=== PATIENT | female | born 1960 | race Caucasian/White ===

== ENCOUNTER → 2016-06-25 | Outpatient (CLI) | payer BC ==
--- NOTE | 2016-06-25 12:11 | USB ---
Reason for exam: clinical finding. History: Patient is postmenopausal. Benign excisional biopsy of the right breast, 2006. Benign excisional biopsy of the right breast, April 12, 1997. Physical Findings: Nurse did not find any significant physical abnormalities on exam. US Breast LT Left breast ultrasound including all four quadrants, the retroareolar region and axilla demonstrates a 0.3 x 0.2 x 0.26cm oval lesion too small to characterize at 1 o'clock, can be followed and a 0.9 x 0.8 x 0.5cm oval, hypoechoic, vascular lesion at 2 o'clock for which a biopsy is recommended. These results were verbally communicated with the patient and result sheet given to the patient on 06/25/16. ASSESSMENT: Suspicious, BI-RAD 4 RECOMMENDATION: Surgical consultation and ultrasound core biopsy of the left breast. (2 o'clock) Called Dr. Nelson with mammographic findings and has scheduled an appointment for the patient for 07/30/16 at 10:[address] Rosales. Biopsy scheduled for 07/03/16 at 8:00. PRELIMINARY REPORT CALLED AND FAXED TO DR. ROSALES ON 06/25/16 AT 300/TP.
== END | disposition home or self-care (01) ==
LOC: RADUSWWP 09:37
PROVIDERS: ATTEND Family Medicine
DX: R92.8 Other abnormal and inconclusive findings on diagnostic imaging of breast (principal)

== ENCOUNTER → 2016-07-03 | Day surgery (SDC) | payer BC ==
[~2016-07-03] MED LIST: ALPRAZolam 0.25 MG TAB ONE; BACITRACIN OINT 1 EACH PACKET TOPICAL ONE; LIDOCAINE 1% INJ 10MG/ML (20 ML MDV) ONE; SODIUM BICARB 4% 5 ML VIAL (0.48 MEQ/ML) ONE
--- NOTE | 2016-07-03 08:56 | USB ---
EXAMINATION TYPE: US biopsy breast VAD LT, MG diagnostic mammo LT wo CAD DATE OF EXAM: 07/03/2016 8:40 AM CLINICAL HISTORY: R92.8 Abn Mammogram. TECHNIQUE: Ultrasound guided core biopsy of left 2:00 breast. COMPARISON: NONE FINDINGS: The procedure of ultrasound guided core biopsy was explained to the patient. Benefits, alternatives, and risks were discussed. An informed consent was then obtained. The patient was placed in supine positioning for imaging and for the procedure. The overlying skin was prepped and draped in usual sterile fashion. Lidocaine buffered with bicarbonate was used as anesthetic into the skin and subcutaneous tissue up to area of concern in the left breast. A black was made with surgical scalpel. Under ultrasound guidance, a 12-gauge vacuum assisted biopsy gun device was used to obtain 4 core samples. Following this, a biopsy clip was left in lesion. The patient tolerated the procedure well without any immediate complication. The patient was kept in the radiology department for short stay after the procedure and then discharged home in stable condition. IMPRESSION: Successful, uncomplicated ultrasound guided core biopsy of area of concern in the left breast, full pathology results to follow. Pathology Results: Benign BREAST, LEFT, CORE BIOPSY: FIBROADENOMA AND BACKGROUND FIBROCYSTIC CHANGES. Recommendation Follow up ultrasound of the left breast in 6 months. CARITO
== END ==
LOC: RADUSWWP 07:07
PROVIDERS: ATTEND Surgery
DX: D24.2 Benign neoplasm of left breast (principal); N60.12 Diffuse cystic mastopathy of left breast; R92.8 Other abnormal and inconclusive findings on diagnostic imaging of breast
CPT/HCPCS: 88305; 19083; G0206; A4648; J2001

== ENCOUNTER → 2017-01-08 | Outpatient (CLI) | payer BC ==
--- NOTE | 2017-01-12 14:54 | MM ---
Reason for exam: follow-up at short interval from prior study. Last mammogram was performed 6 months ago. History: Patient is postmenopausal. Benign US biopsy breast VAD LT of the left breast, July 03, 2016. Benign excisional biopsy of the right breast, 2006. Benign excisional biopsy of the right breast, April 12, 1997. Physical Findings: Nurse did not find any significant physical abnormalities on exam. MG Diagnostic Mammo LT w CAD CC, MLO, and ML view(s) were taken of the left breast. Prior study comparison: July 03, 2016, left breast MG diagnostic mammo LT wo CAD. January 30, 2010, bilateral digital screening mammogram. There are scattered fibroglandular densities. No significant new findings when compared with previous films. These results were verbally communicated with the patient and result sheet given to the patient on 01/08/17. ASSESSMENT: Benign, BI-RAD 2 RECOMMENDATION: Routine screening mammogram of both breasts in 1 year.
--- NOTE | 2017-01-12 15:03 | USB ---
Reason for exam: follow-up at short interval from prior study. History: Patient is postmenopausal. Benign US biopsy breast VAD LT of the left breast, July 03, 2016. Benign excisional biopsy of the right breast, 2006. Benign excisional biopsy of the right breast, April 12, 1997. US Breast LT Left breast ultrasound includes all four quadrants, the retroareolar region and axilla. Finding demonstrate a 0.5 x 0.5 x0.3cm solid hypoechoic lesion at 2 o'clock with clip. These results were verbally communicated with the patient and result sheet given to the patient on 01/08/17. ASSESSMENT: Benign, BI-RAD 2 RECOMMENDATION: Routine screening mammogram of the left breast in 1 year.
== END | disposition home or self-care (01) ==
LOC: RADMAMWWP 13:39
PROVIDERS: ATTEND Surgery
DX: R92.8 Other abnormal and inconclusive findings on diagnostic imaging of breast (principal)
CPT/HCPCS: 76641; G0206

== ENCOUNTER → 2017-02-16 | Outpatient (CLI) | payer BC ==
--- NOTE | 2017-02-16 22:52 | BD ---
EXAMINATION TYPE: MG DEXA axial skeleton. DATE OF EXAM: 02/16/2017 COMPARISON: NONE CLINICAL HISTORY: Postmenopausal female Height: 62.5 IN Weight: 183 LBS FRAX RISK QUESTIONS: Alcohol (3 or more units per day): NO Family History (Parent hip fracture): NO Glucocorticoids (More than 3mos): NO (Ex: prednisone, prednisolone, methylprednisolone, dexamethasone, and hydrocortisone). History of Fracture in Adulthood: NO Secondary Osteoporosis: 1. Type 1 Diabetes: NO 2. Hyperthyroidism: NO 3. Menopause before 45: YES AGE 44 4. Malnutrition: NO 5. Chronic liver disease: NO Rheumatoid Arthritis: NO Current Tobacco Use: NO RISK FACTORS HISTORY OF: Active: YES Diet low in dairy products/other sources of calcium: YES Postmenopausal woman: AGE 44 MEDICATIONS: Additional Medications: LOSARTAN, EXAM MEASUREMENTS: Bone mineral densitometry was performed using the [employer] System. Bone mineral density as measured about the Lumbar spine is: ----- L1-L4(G/cm2): 1.158 T Score Values are as follows: ----- L2: -0.5 ----- L3: 0.1 ----- L4: -0.1 ----- L1-L4: -0.2 Bone mineral density BASELINE Bone mineral density about the R hip (g/cm2): 0.968 Bone mineral density about the L hip (g/cm2): 0.984 T Score values are as follows: -----R Neck: -0.5 -----L Neck: -0.4 -----R Total: -0.3 -----L Total: 0.3 Bone mineral density BASELINE IMPRESSION: Normal bone density NOTE: T-SCORE=SD OF THE YOUNG ADULT MEAN.
== END | disposition home or self-care (01) ==
LOC: RADBDWWP 14:54
PROVIDERS: ATTEND Obstetrics & Gynecology
DX: Z78.0 Asymptomatic menopausal state (principal)
CPT/HCPCS: 36415; 77080; 84439; 84443

== ENCOUNTER → 2017-07-09 | Outpatient (CLI) | payer BC ==
--- NOTE | 2017-07-09 14:44 | MM ---
Reason for exam: screening (asymptomatic). Last mammogram was performed 6 months ago. History: Patient is postmenopausal. Benign US biopsy breast VAD LT of the left breast, July 03, 2016. Benign excisional biopsy of the right breast, 2006. Benign excisional biopsy of the right breast, April 12, 1997. Physical Findings: A clinical breast exam by your physician is recommended on an annual basis and results should be correlated with mammographic findings. MG Screening Mammo w CAD Bilateral CC and MLO view(s) were taken. Prior study comparison: January 08, 2017, left breast MG diagnostic mammo LT w CAD. July 03, 2016, left breast MG diagnostic mammo LT wo CAD. January 30, 2010, bilateral digital screening mammogram. The breast tissue is heterogeneously dense. This may lower the sensitivity of mammography. Finding: There are stable typically benign grouped/clustered calcifications in the middle position of the left breast. Previous mammotome biopsy in the left breast. Focal asymmetry right MLO view anterior middle depth central aspect. ASSESSMENT: Incomplete: need additional imaging evaluation, BI-RAD 0 RECOMMENDATION: Special view mammogram of the right breast. If lesion persists on supplemental views, image directed ultrasound is recommended. [facility] will attempt to contact patient to return for supplemental views and ultrasound if indicated.
== END | disposition home or self-care (01) ==
LOC: RADMAMWWP 13:43
PROVIDERS: ATTEND Internal Medicine
DX: Z12.31 Encounter for screening mammogram for malignant neoplasm of breast (principal)
CPT/HCPCS: 77067

== ENCOUNTER → 2017-07-14 | Outpatient (CLI) | payer BC ==
--- NOTE | 2017-07-15 08:28 | MM ---
Reason for exam: additional evaluation requested from abnormal screening. Last mammogram was performed less than 1 month ago. History: Patient is postmenopausal. Benign US biopsy breast VAD LT of the left breast, July 03, 2016. Benign excisional biopsy of the right breast, 2010. Benign excisional biopsy of the right breast, 2006. Benign excisional biopsy of the right breast, April 12, 1997. Physical Findings: Nurse did not find any significant physical abnormalities on exam. MG Work Up Mamm w CAD RT Spot compression CC, spot compression MLO, and LM view(s) were taken of the right breast. Prior study comparison: July 09, 2017, bilateral MG screening mammo w CAD. January 08, 2017, left breast MG diagnostic mammo LT w CAD. January 30, 2010, bilateral digital screening mammogram. There are scattered fibroglandular densities. Two asymmetric densities centrally and superiorly persists on spot MLO. One of these is seen on the true lateral. Medial asymmetry on the CC view, probably 2 o'clock persists. These results were verbally communicated with the patient and result sheet given to the patient on 07/14/17. ASSESSMENT: Incomplete: need additional imaging evaluation, BI-RAD 0 RECOMMENDATION: Ultrasound of the right breast. (9-3 o'clock particular attention 2 o'clock)
--- NOTE | 2017-07-15 08:31 | USB ---
Reason for exam: additional evaluation requested from abnormal screening. History: Patient is postmenopausal. Benign US biopsy breast VAD LT of the left breast, July 03, 2016. Benign excisional biopsy of the right breast, 2010. Benign excisional biopsy of the right breast, 2006. Benign excisional biopsy of the right breast, April 12, 1997. US Breast Workup Limited RT Right breast ultrasound demonstrates a 4 x 2 x 4mm oval, cystic lesion at 10 o'clock and a 7 x 5 x 3mm irregular, solid, hypoechoic, suspicious lesion at 2 o'clock for which a biopsy is recommended. Some areas of scar are present in the upper outer quadrant. These results were verbally communicated with the patient and result sheet given to the patient on 07/14/17. ASSESSMENT: Suspicious, BI-RAD 4 RECOMMENDATION: Surgical consultation and ultrasound core biopsy of the right breast. (2 o'clock) Called Dr. Reynoso with mammographic findings and has scheduled an appointment for the patient for 08/04/17 at 1:[address] Rosales. Biopsy scheduled for 07/21/17 at 12:20. PRELIMINARY REPORT CALLED AND FAXED TO DR. ROSALES ON 07/15/17.
== END | disposition home or self-care (01) ==
LOC: RADMAMWWP 14:59
PROVIDERS: ATTEND Internal Medicine
DX: R92.2 Inconclusive mammogram (principal); R92.8 Other abnormal and inconclusive findings on diagnostic imaging of breast
CPT/HCPCS: 77065

== ENCOUNTER → 2017-07-21 | Day surgery (SDC) | payer BC ==
[2017-07-21 11:44] VITALS: RESP 12
[2017-07-21 12:51] VITALS: BP 140/87; PULSE 75; TEMP 98
--- NOTE | 2017-07-21 14:15 | USB ---
EXAMINATION TYPE: US biopsy breast VAD RT, MG diagnostic mammo RT wo CAD DATE OF EXAM: 07/21/2017 CLINICAL HISTORY: R92.8 ABN MAMMOGRAM. TECHNIQUE: Ultrasound guided core biopsy of right breast. COMPARISON: Exams dating back to 01/08/2017 FINDINGS: The procedure of ultrasound guided core biopsy was explained to the patient. Benefits, alternatives, and risks were discussed. An informed consent was then obtained. The patient was placed in supine positioning for imaging and for the procedure. The overlying skin was prepped and draped in usual sterile fashion. 8 cc of lidocaine buffered with 2 cc of bicarbonate was used as anesthetic into the skin and subcutaneous tissue up to the 7 x 5 x 3 mm irregular, solid, hypoechoic suspicious mass at the 2:00 position. Under ultrasound guidance, a 12-gauge vacuum assisted biopsy gun device was used to obtain 6 core samples. Following this, a coil-shaped biopsy clip was left in lesion. The patient tolerated the procedure well without any immediate complication. The patient was kept in the radiology department for short stay after the procedure and then discharged home in stable condition. Postprocedure mammogram demonstrates appropriate clip placement without migration. IMPRESSION: Successful, uncomplicated ultrasound guided core biopsy of the 7 x 5 x 3 mm irregular, solid, hypoechoic mass of intermediate suspicion at the 2: 00 position in the right breast, full pathology results to follow. Pathology Results: High Risk BREAST, RIGHT, TWO O'CLOCK, CORE BIOPSY: INTRADUCTAL PAPILLOMA WITH SCLEROSIS. BACKGROUND FIBROCYSTIC CHANGES INCLUDING FIBROSIS, CYSTS, APOCRINE METAPLASIA AND SCLEROSING ADENOSIS WITH MICROCALCIFICATIONS. Recommendation Surgical consult of the right breast. (open biopsy due to high risk lesion, papilloma) CARITO
== END | disposition home or self-care (01) ==
LOC: RADUSWWP 11:20
PROVIDERS: ATTEND Surgery
DX: D24.1 Benign neoplasm of right breast (principal); N60.81 Other benign mammary dysplasias of right breast; N60.21 Fibroadenosis of right breast; N60.31 Fibrosclerosis of right breast
CPT/HCPCS: 88305; 77065; 19083; A4648; J2001

== ENCOUNTER → 2017-08-20 | Day surgery (SDC) | payer BC ==
[2017-08-17 12:06] VITALS: BMI 32.4
[~2017-08-20] MED LIST changes: -ALPRAZolam 0.25 MG TAB ONE; +ALPRAZolam 0.5 MG TAB PO ONE; +Acetaminophen-Codeine 300-30mg TAB PO ONE; -BACITRACIN OINT 1 EACH PACKET TOPICAL ONE; +BUPIVACAINE (PF) 0.25% 30 ML VIAL SQ ONE; +DEXAMETHASONE SOD PHOSPHATE 10 MG/ML 1 ML VIAL IV ONE; +GLYCOPYRROLATE 0.2 MG/ML 2 ML VIAL ONE; +HEPARIN SODIUM,PORCINE 5,000 UNIT/ML 1 ML VIAL SQ ONE; +HYDROcodone/APAP 5-325MG 1 EACH TAB PO PRN; +KETOROLAC 30 MG/ML 1 ML VIAL IVP ONE; +LACTATED RINGERS 1,000 ML IV SCH; +LIDOCAINE 1% 20 ML VIAL (10MG/ML) FOR IV START INTRADERMA ONE; +LIDOCAINE 1% INJ 10MG/ML (20 ML MDV) SQ ONE; +MIDAZOLAM 2 MG/2 ML VIAL IV PRN; +MIDAZOLAM 2 MG/2 ML VIAL ONE; +MORPHINE SULFATE 4 MG/ML SYRINGE IV PRN; +NALOXONE 0.4 MG/ML 1 ML VIAL IV PRN; +ONDANSETRON 4 MG/2 ML VIAL IVP ONE; +PROPOFOL 10 MG/ML 20 ML VIAL IV ONE; +Pre Op ABX Message 1 EACH MISC MISCELLANE ONE; +SCOPOLAMINE 1.5MG/72HR PATCH TRANSDERM ONE; +SODIUM BICARB 4% 5 ML VIAL (0.48 MEQ/ML) MISCELLANE ONE; -SODIUM BICARB 4% 5 ML VIAL (0.48 MEQ/ML) ONE; +SODIUM CHLORIDE 0.9% 50 ML with ceFAZolin 2,000 MG IV ONE; +fentaNYL (PF) 50 MCG/ML 2 ML AMP ONE
[2017-08-20 07:33] VITALS: RESP 16
--- NOTE | 2017-08-20 10:30 | P.OP ---
Date of Procedure: 08/20/17 Procedure(s) Performed: PREOPERATIVE DIAGNOSIS: Abnormal right mammogram POSTOPERATIVE DIAGNOSIS: Same PROCEDURE: Right Breast wire localization biopsy SURGEON: Connie EBL: Minimal ANESTHESIA: Sedation plus local COMPLICATIONS: None OPERATIVE PROCEDURE: Patient was placed on the operating room table in the supine position. The patient's breast was prepped and draped in usual sterile fashion. A curvilinear incision was made adjacent to the wire entrance site. I followed the wire down into the breast tissue. The breast tissue around the tip of the wire was fully excised using electrocautery. The specimen was sent for specimen radiogram. The clip was present within the specimen. The subcutaneous tissues were inspected. No bleeding was seen. The subcutaneous tissues were closed using 3-0 Vicryl sutures. The skin was closed using a running 4-0 Monocryl stitch. Steri-Strips and sterile dressings were applied. DISPOSITION: Stable to recovery room
[2017-08-20 10:35] VITALS: TEMP 97
[2017-08-20 10:57] VITALS: BP 131/75; PULSE 77
--- NOTE | 2017-08-20 12:17 | MM ---
EXAMINATION TYPE: MG surgical specimen RT, MG pre op needle loc RT DATE OF EXAM: 08/20/2017 COMPARISON: 07/21/2017 CLINICAL HISTORY: Surgical excision of a high-risk intraductal papilloma with sclerosis with surrounding calcifications representing sclerosing adenosis. TECHNIQUE: Needle localization with wire placement and surgical excision of area of concern in the right breast. FINDINGS: The procedure of needle localization with wire placement and than surgical excision was explained to the patient. Benefits, alternatives, and risks were discussed. An informed consent was then obtained. Preprocedural timeout was performed. The shortest pathway for procedure was chosen. Shortest pathway was medial lateral approach. The overlying skin was prepped and draped in usual sterile fashion. 10 cc of lidocaine buffered with bicarbonate was used as anesthetic into the skin and subcutaneous tissue up to the level of area of concern. A 7.5 cm needle was used. It was placed via a medial lateral approach under mammographic guidance. Subsequent 90 degrees mammogram show the needle to be in satisfactory position relative to the targeted area. At this point, wire was placed and the needle was withdrawn. The wire was fixed to patient's skin. Images were marked for surgeon. The patient tolerated the procedure well without any immediate complication. The patient was kept in the radiology department for short stay after the procedure and then taken to surgery for surgical excision. Targeted biopsy marker, some adjacent surrounding calcifications and wire are identified in specimen mammogram. The patient was kept in hospital for short stay after the procedure and then discharged home in stable condition. IMPRESSION: Successful, uncomplicated needle localization with wire placement and surgical excision of the targeted biopsy marker representing a high-risk intraductal papilloma with surrounding calcifications representing sclerosing adenosis in the right breast, full pathology results to follow. Pathology Results: Benign BREAST, RIGHT, NEEDLE LOCALIZATION EXCISION: INTRADUCTAL PAPILLOMA, MARGINS NEGATIVE. BACKGROUND FIBROCYSTIC CHANGES AND PREVIOUS BIOPSY SITE. Recommendation Follow up mammogram of the right breast in 6 months. CARITO
== END ==
LOC: OR 07:06
PROVIDERS: ATTEND Surgery
DX: D24.1 Benign neoplasm of right breast (principal); I10 Essential (primary) hypertension; G43.909 Migraine, unspecified, not intractable, without status migrainosus; Z79.899 Other long term (current) drug therapy; Z88.0 Allergy status to penicillin; Z88.2 Allergy status to sulfonamides
CPT/HCPCS: 88307; 76098; 19281; 19125; J2250; J1644; J1100; J2405; J2001; J3010; J1885; J0690; J2704

== ENCOUNTER → 2018-01-24 | Outpatient (CLI) | payer BC ==
--- NOTE | 2018-01-25 09:25 | MM ---
Reason for exam: follow-up at short interval from prior study. Last mammogram was performed 6 months ago. History: Patient is postmenopausal and has history of high-risk lesion on a previous biopsy at age 57. Benign MG pre op needle loc RT of the right breast, August 20, 2017. High risk US biopsy breast VAD RT of the right breast, July 21, 2017. Benign US biopsy breast VAD LT of the left breast, July 03, 2016. Benign excisional biopsy of the right breast, 2010. Benign excisional biopsy of the right breast, 2006. Benign excisional biopsy of the right breast, April 12, 1997. Physical Findings: Nurse did not find any significant physical abnormalities on exam. MG 3D Diag Mammo W/Cad RT CC and MLO view(s) were taken of the right breast. Prior study comparison: July 21, 2017, right breast MG diagnostic mammo RT wo CAD. July 14, 2017, right breast MG work up mamm w CAD RT. There are scattered fibroglandular densities. There is a 4mm mass in the anterior central right breast at anterior depth, stable on the prior CC view but not seem on the MLO view. This improves on spot compression views a precautionary 6 month follow up mammogram is recommended on the right. Post biopsy changes on the right breast are seen. These results were verbally communicated with the patient and result sheet given to the patient on 01/24/18. ASSESSMENT: Probably benign, BI-RAD 3 RECOMMENDATION: Follow-up diagnostic mammogram of both breasts in 6 months. Patient will be due for left breast mammogram at that time.
== END | disposition home or self-care (01) ==
LOC: RADMAMWWP 10:19
PROVIDERS: ATTEND Surgery
DX: R92.8 Other abnormal and inconclusive findings on diagnostic imaging of breast (principal)
CPT/HCPCS: 77061; 77065

== ENCOUNTER → 2018-08-11 | Outpatient (CLI) | payer BC ==
--- NOTE | 2018-08-11 14:52 | MM ---
Reason for exam: follow-up at short interval from prior study. Last mammogram was performed 6 months ago. History: Patient is postmenopausal and has history of high-risk lesion on a previous biopsy at age 57. Benign MG pre op needle loc RT of the right breast, August 20, 2017. High risk US biopsy breast VAD RT of the right breast, July 21, 2017. Benign US biopsy breast VAD LT of the left breast, July 03, 2016. Benign excisional biopsy of the right breast, 2010. Benign excisional biopsy of the right breast, 2006. Benign excisional biopsy of the right breast, April 12, 1997. Physical Findings: Nurse did not find any significant physical abnormalities on exam. MG 3D Diag Mammo W/Cad ERIKA Bilateral CC and MLO view(s) were taken. Prior study comparison: January 24, 2018, right breast MG 3d diag mammo w/cad RT. July 21, 2017, right breast MG diagnostic mammo RT wo CAD. The breast tissue is heterogeneously dense. This may lower the sensitivity of mammography. Finding #1: Architectural distortion in the upper outer quadrant of the right breast consistent with known lumpectomy changes. Finding #2: There are typically benign dystrophic, round calcifications in both breasts. Previous mammotome biopsy in the left breast. There is no discrete abnormality. These results were verbally communicated with the patient and result sheet given to the patient on 08/11/18. ASSESSMENT: Benign, BI-RAD 2 RECOMMENDATION: Routine screening mammogram of both breasts in 1 year.
== END | disposition home or self-care (01) ==
LOC: RADMAMWWP 13:06
PROVIDERS: ATTEND Surgery
DX: R92.8 Other abnormal and inconclusive findings on diagnostic imaging of breast (principal)
CPT/HCPCS: 77062; 77066

== ENCOUNTER → 2021-02-11 | Outpatient (CLI) | payer BC ==
--- NOTE | 2021-02-11 10:54 | MM ---
Reason for exam: additional evaluation requested from prior study. Last mammogram was performed 2 years and 6 months ago. History: Patient is postmenopausal and has history of high-risk lesion on a previous biopsy at age 57. Benign MG pre op needle loc RT of the right breast, August 20, 2017. High risk US biopsy breast VAD RT of the right breast, July 21, 2017. Benign US biopsy breast VAD LT of the left breast, July 03, 2016. Benign excisional biopsy of the right breast, 2010. Benign excisional biopsy of the right breast, 2006. Benign excisional biopsy of the right breast, April 12, 1997. Physical Findings: Nurse did not find any significant physical abnormalities on exam. MG 3D Diag Mammo W/Cad ERIKA Bilateral CC and MLO view(s) were taken. Prior study comparison: August 11, 2018, bilateral MG 3d diag mammo w/cad ERIKA. January 24, 2018, right breast MG 3d diag mammo w/cad RT. July 09, 2017, bilateral MG screening mammo w CAD. Previous mammotome biopsy in the left breast. No significant new findings when compared with previous films. These results were verbally communicated with the patient and result sheet given to the patient on 02/11/21. ASSESSMENT: Benign, BI-RAD 2 RECOMMENDATION: Routine screening mammogram of both breasts in 1 year.
== END | disposition home or self-care (01) ==
LOC: RADMAMWWP 08:26
PROVIDERS: ATTEND Family Medicine
DX: R92.8 Other abnormal and inconclusive findings on diagnostic imaging of breast (principal); Z78.0 Asymptomatic menopausal state
CPT/HCPCS: 77062; 77066

== ENCOUNTER 2021-05-23 10:12 | Day surgery (SDC) | payer BC ==
[2021-05-21 15:13] VITALS: BMI 39.8
[~2021-05-23 10:12] MED LIST changes: -ALPRAZolam 0.5 MG TAB PO ONE; -Acetaminophen-Codeine 300-30mg TAB PO ONE; -BUPIVACAINE (PF) 0.25% 30 ML VIAL SQ ONE; -DEXAMETHASONE SOD PHOSPHATE 10 MG/ML 1 ML VIAL IV ONE; -GLYCOPYRROLATE 0.2 MG/ML 2 ML VIAL ONE; -HEPARIN SODIUM,PORCINE 5,000 UNIT/ML 1 ML VIAL SQ ONE; -HYDROcodone/APAP 5-325MG 1 EACH TAB PO PRN; -KETOROLAC 30 MG/ML 1 ML VIAL IVP ONE; -LIDOCAINE 1% 20 ML VIAL (10MG/ML) FOR IV START INTRADERMA ONE; -LIDOCAINE 1% INJ 10MG/ML (20 ML MDV) ONE; -LIDOCAINE 1% INJ 10MG/ML (20 ML MDV) SQ ONE; -MIDAZOLAM 2 MG/2 ML VIAL IV PRN; -MIDAZOLAM 2 MG/2 ML VIAL ONE; -MORPHINE SULFATE 4 MG/ML SYRINGE IV PRN; -NALOXONE 0.4 MG/ML 1 ML VIAL IV PRN; -ONDANSETRON 4 MG/2 ML VIAL IVP ONE; -PROPOFOL 10 MG/ML 20 ML VIAL IV ONE; -Pre Op ABX Message 1 EACH MISC MISCELLANE ONE; -SCOPOLAMINE 1.5MG/72HR PATCH TRANSDERM ONE; -SODIUM BICARB 4% 5 ML VIAL (0.48 MEQ/ML) MISCELLANE ONE; -SODIUM CHLORIDE 0.9% 50 ML with ceFAZolin 2,000 MG IV ONE; -fentaNYL (PF) 50 MCG/ML 2 ML AMP ONE
[2021-05-23 10:39] VITALS: TEMP 97.4
[2021-05-23] MEDS ORDERED: ONDANSETRON 4 MG/2 ML VIAL ONE (11:22)
[2021-05-23] MEDS ORDERED: ONDANSETRON 4 MG/2 ML VIAL IVP ONE (11:25)
[2021-05-23] MEDS ORDERED: PROPOFOL 10 MG/ML 20 ML VIAL IV ONE (11:42)
--- NOTE | 2021-05-23 12:03 | P.PCN ---
Date of Procedure: 05/23/21 Procedure(s) Performed: BRIEF HISTORY: Patient is a 61-year-old pleasant female scheduled for an elective colonoscopy as a part of evaluation of history of colon polyps. Last colonoscopy was 5 years ago. PROCEDURE PERFORMED: Colonoscopy. PREOPERATIVE DIAGNOSIS: History of colon polyps. IV sedation per Anesthesia. PROCEDURE: After informed consent was obtained, the patient, was brought into the endoscopy unit. IV sedation was administered by Anesthesia under continuous monitoring. Digital rectal examination was normal. Initially the Olympus CF-160 flexible video colonoscope was then inserted in the rectum, gradually advanced into the cecum without any difficulty. Careful examination was performed as the scope was gradually being withdrawn. Ileocecal valve and the appendiceal orifice were visualized and appeared normal. Prep was excellent. Mucosa of the cecum, ascending colon, transverse colon, descending colon, sigmoid colon, and rectum appeared normal. Scattered sigmoid diverticulosis. Retroflexion was performed in the rectum and no lesions were seen. The patient tolerated the procedure well. IMPRESSION: Normal-appearing colon from rectum to cecum with no evidence of colorectal neoplasia . Scattered sigmoid diverticulosis. RECOMMENDATIONS: Findings of this examination were discussed with the patient as well as her family. She was advised to have a repeat screening colonoscopy in 10 years..
[2021-05-23 12:06] VITALS: PULSE 87
[2021-05-23 12:35] VITALS: BP 127/84; RESP 18
== END 2021-05-23 12:36 | disposition home or self-care (01) ==
LOC: ORWHC2ENDO 10:12
PROVIDERS: ATTEND Internal Medicine Gastroenterology
DX: Z12.11 Encounter for screening for malignant neoplasm of colon (principal); K57.30 Diverticulosis of large intestine without perforation or abscess without bleeding; I10 Essential (primary) hypertension; Q21.1 Atrial septal defect; H40.9 Unspecified glaucoma; H35.30 Unspecified macular degeneration; Z88.0 Allergy status to penicillin; Z79.899 Other long term (current) drug therapy; Z88.2 Allergy status to sulfonamides; Z86.010 Personal history of colon polyps
CPT/HCPCS: J2405; J2704; G0105; 45378

== ENCOUNTER → 2022-04-21 | Outpatient (CLI) | payer BC ==
--- NOTE | 2022-04-22 09:02 | MM ---
Reason for Exam: Screening (asymptomatic). Last mammogram was performed 1 year(s) and 3 month(s) ago. Patient History: Menarche at age 12. First Full-Term at age 17. Left ovary removed at age 44. Right ovary removed at age 44. Hysterectomy at age 44. Postmenopausal. Patient has history of breast feeding. 2006, Benign Excisional Biopsy on the right side. 2010, Benign Excisional Biopsy on the right side. 08/20/2017, Benign Core Biopsy on the right side. 07/21/2017, High risk Core Biopsy on the right side. 07/03/2016, Benign Core Biopsy on the left side. 04/12/1997, Benign Excisional Biopsy on the right side. Risk Values: Naomie 5 year model risk: 1.7%. NCI Lifetime model risk: 7.5%. Prior Study Comparison: 05/08/2005 Screening Mammogram, [facility]. 10/06/2006 Screening Mammogram, [facility]. 02/08/2008 Bilateral Diagnostic Mammogram, [facility]. 01/30/2010 Bilateral Screening Mammogram, [facility]. 07/09/2017 Bilateral Screening Mammogram, [facility]. 07/21/2017 Right Diagnostic Mammogram, [facility]. 01/24/2018 Right Diagnostic Mammogram, [facility]. 08/11/2018 Bilateral Diagnostic Mammogram, [facility]. 02/11/2021 Bilateral Diagnostic Mammogram, [facility]. Tissue Density: There are scattered fibroglandular densities. Findings: Analyzed By CAD. Stable distortion in the right breast. Mammotome biopsy clip left breast redemonstrated. A few benign-appearing rounded dystrophic along with vascular calcifications in the bilateral breasts are again seen. Benign-appearing right axillary lymph nodes are redemonstrated. There is no suspicious new group of microcalcifications or new suspicious mass in either breast. Overall Assessment: Benign, BI-RAD 2 Management: Screening Mammogram of both breasts in 1 year. A clinical breast exam by your physician is recommended on an annual basis and results should be correlated with mammographic findings. Electronically signed and approved by: Oniel Hewitt M.D.
== END | disposition home or self-care (01) ==
LOC: RADMAMWWP 09:40
PROVIDERS: ATTEND Family Medicine
DX: Z12.31 Encounter for screening mammogram for malignant neoplasm of breast (principal); Z78.0 Asymptomatic menopausal state; Z90.721 Acquired absence of ovaries, unilateral
CPT/HCPCS: 77063; 77067

== ENCOUNTER → 2023-05-31 | Outpatient (CLI) | payer BC ==
--- NOTE | 2023-06-02 08:38 | MM ---
Reason for Exam: Screening (asymptomatic). Last mammogram was performed 1 year(s) and 1 month(s) ago. Patient History: Menarche at age 12. First Full-Term at age 17. Left ovary removed at age 44. Right ovary removed at age 44. Hysterectomy at age 44. Postmenopausal. Patient has history of breast feeding. 2006, Benign Excisional Biopsy on the right side. 2010, Benign Excisional Biopsy on the right side. 08/20/2017, Benign Core Biopsy on the right side. 07/21/2017, High risk Core Biopsy on the right side. 07/03/2016, Benign Core Biopsy on the left side. 04/12/1997, Benign Excisional Biopsy on the right side. Risk Values: Naomie 5 year model risk: 1.7%. NCI Lifetime model risk: 7.2%. Prior Study Comparison: 08/11/2018 Bilateral Diagnostic Mammogram, [facility]. 02/11/2021 Bilateral Diagnostic Mammogram, [facility]. 04/21/2022 Bilateral MG 3D screening mammo w/cad, [facility]. Tissue Density: The breast tissue is heterogeneously dense. This may lower the sensitivity of mammography. Findings: Analyzed By CAD. There is no suspicious group of microcalcifications or new suspicious mass in either breast. Overall Assessment: Benign, BI-RAD 2 Management: Screening Mammogram of both breasts in 1 year. . Patient should continue monthly self-breast exams. A clinical breast exam by your physician is recommended on an annual basis. This exam should not preclude additional follow-up of suspicious palpable abnormalities. Note on Naomie scores and lifetime risk: 1. A Naomie score greater than 3% is considered moderate risk. If this is the case, consider specialist referral to assess eligibility for a risk reducing agent. 2. If overall lifetime risk for the development of breast cancer is 20% or higher, the patient may qualify for future screening with alternating mammogram and breast MRI. Electronically signed and approved by: Juan Carlos Chu M.D. Radiologis
== END | disposition home or self-care (01) ==
LOC: RADMAMWWP 13:30
PROVIDERS: ATTEND Family Medicine
DX: Z12.31 Encounter for screening mammogram for malignant neoplasm of breast (principal); Z78.0 Asymptomatic menopausal state
CPT/HCPCS: 77063; 77067

== ENCOUNTER → 2024-06-06 | Outpatient (CLI) | payer BC ==
--- NOTE | 2024-06-09 16:32 | MM ---
Reason for Exam: Screening (asymptomatic). Last screening mammogram was performed 12 month(s) ago. Patient History: Menarche at age 12. First Full-Term at age 17. Left ovary removed at age 44. Right ovary removed at age 44. Hysterectomy at age 44. Postmenopausal. Patient has history of breast feeding. 2006, Benign Excisional Biopsy on the right side. 2010, Benign Excisional Biopsy on the right side. 08/20/2017, Benign Core Biopsy on the right side. 07/21/2017, High risk Core Biopsy on the right side. 07/03/2016, Benign Core Biopsy on the left side. 04/12/1997, Benign Excisional Biopsy on the right side. Risk Values: Naomie 5 year model risk: 1.7%. NCI Lifetime model risk: 7.0%. Prior Study Comparison: 02/11/2021 Bilateral Diagnostic Mammogram, [facility]. 04/21/2022 Bilateral MG 3D screening mammo w/cad, [facility]. 05/31/2023 Bilateral MG 3D screening mammo w/cad, [facility]. Tissue Density: There are scattered areas of fibroglandular density. Findings: Analyzed By CAD. Post excisional changes lateral right breast. Nodular asymmetric density superior left MLO view middle depth appears more pronounced. This may represent superimposition shadow but further evaluation is recommended. Otherwise, no significant change. Overall Assessment: Incomplete: need additional imaging evaluation, BI-RAD 0 Management: Special View Mammogram of the left breast. [facility] will attempt to contact patient to return for supplemental views and ultrasound if indicated. [facility], , 06/09/2024 4:28 PM. Electronically signed and approved by: Mando Olivier M.D. Radiologist
== END | disposition home or self-care (01) ==
LOC: RADMAMWWP 09:24
PROVIDERS: ATTEND Family Medicine
DX: Z12.31 Encounter for screening mammogram for malignant neoplasm of breast (principal); Z90.722 Acquired absence of ovaries, bilateral; Z78.0 Asymptomatic menopausal state; R92.323 Mammographic fibroglandular density, bilateral breasts
CPT/HCPCS: 77063; 77067

== ENCOUNTER → 2024-06-23 | Outpatient (CLI) | payer BC ==
--- NOTE | 2024-06-23 10:28 | MM ---
Reason for Exam: Additional evaluation requested from abnormal screening. Last screening mammogram was performed less than 1 month ago. Patient History: Menarche at age 12. First Full-Term at age 17. Left ovary removed at age 44. Right ovary removed at age 44. Hysterectomy at age 44. Postmenopausal. Patient has history of breast feeding. 2006, Benign Excisional Biopsy on the right side. 2010, Benign Excisional Biopsy on the right side. 08/20/2017, Benign Core Biopsy on the right side. 07/21/2017, High risk Core Biopsy on the right side. 07/03/2016, Benign Core Biopsy on the left side. 04/12/1997, Benign Excisional Biopsy on the right side. Risk Values: Naomie 5 year model risk: 1.7%. NCI Lifetime model risk: 7.0%. Prior Study Comparison: 04/21/2022 Bilateral MG 3D screening mammo w/cad, [facility]. 05/31/2023 Bilateral MG 3D screening mammo w/cad, [facility]. 06/06/2024 Bilateral MG 3D screening mammo w/cad, [facility]. Tissue Density: Left: There are scattered areas of fibroglandular density. Findings: Analyzed By CAD. No new suspicious masses, calcifications or distortions. Asymmetry on MLO view is stable back to 2020. Overall Assessment: Benign, BI-RAD 2 Management: Screening Mammogram of both breasts in 1 year. Results were given to the patient verbally at the time of exam. Patient should continue monthly self-breast exams. A clinical breast exam by your physician is recommended on an annual basis. This exam should not preclude additional follow-up of suspicious palpable abnormalities. Note on Naomie scores and lifetime risk: 1. A Naomie score greater than 3% is considered moderate risk. If this is the case, consider specialist referral to assess eligibility for a risk reducing agent. 2. If overall lifetime risk for the development of breast cancer is 20% or higher, the patient may qualify for future screening with alternating mammogram and breast MRI. [facility], , 06/23/2024 10:25 AM. Electronically signed and approved by: Ede Lerner DO
== END | disposition home or self-care (01) ==
LOC: RADMAMWWP 09:58
PROVIDERS: ATTEND Family Medicine
DX: R92.8 Other abnormal and inconclusive findings on diagnostic imaging of breast (principal); Z90.722 Acquired absence of ovaries, bilateral; Z78.0 Asymptomatic menopausal state; R92.322 Mammographic fibroglandular density, left breast
CPT/HCPCS: 77061; 77065